=== PATIENT | female | born 1975 | race Caucasian/White ===

== ENCOUNTER 2016-10-20 11:29 | Emergency (ER) | payer BC ==
[2016-10-20] MEDS ORDERED: AMPICILLIN/SULBACTAM 3 GM in NS 100 ML IV ONE (13:19)
--- NOTE | 2016-10-20 13:23 | EDPHY ---
H & P Stated Complaint: left ear pain 6 x days Source: Patient Exam Limitations: No limitations - Personal History LMP (Females 10-55): Irregular Current Tetanus Diphtheria and Acellular Pertussis (TDAP): Yes Tetanus Vaccine Date: <10yrs - Medical/Surgical History Hx Asthma: Yes Hx Chronic Respiratory Disease: No Hx Diabetes: Yes Hx Cardiac Disease: No Hx Renal Disease: No Hx Cirrhosis: No Hx Alcoholism: No Hx HIV/AIDS: No Hx Splenectomy or Spleen Trauma: No Other PMH: DM, hypothyroid, depression. carpel tunnel - Social History Smoking Status: Never smoked Time Seen by Provider: 10/20/16 11:40 HPI/ROS: CHIEF COMPLAINT: left facial swelling, left ear pain HISTORY OF PRESENT ILLNESS: 41-year-old female presents to the emergency department complaining of worsening left-sided facial swelling and left ear pain. Patient reports this started 6 days ago, 4 days ago she was seen at [facility] and started on doxycycline for a left ear infection, she was already taking Keflex for a mastitis. She finished her Keflex yesterday , she reports her mastitis has resolved, she continues with left ear pain and reports left-sided facial swelling is increasing. She denies fevers or chills, no difficulty swallowing, no sore throat. Patient reports 2 weeks ago she started with a cold that has mostly resolved. She denies chest pain, shortness of breath, nausea, vomiting or diarrhea. REVIEW OF SYSTEMS: A comprehensive 10 point review of systems is otherwise negative aside from elements mentioned in the history of present illness. (Wen Badillo) - Physical Exam Exam: Physical Exam Gen: Alert and Oriented, NAD HEENT: PERRL, moist mucous membranes, left external ear canal with swelling and erythema, left TM with moderate erythema, no rupture, left sided facial swelling to parotid gland with tenderness to palpation NECK: no meningismus CV: regular rate and regular rhythm PULM: CTAB, no wheezes ABDOMEN: Obese, soft, non tender to palpation, BS present BACK: No CVA tenderness NEURO: Neurologically grossly intact EXTREMITIES: normal appearing SKIN: no rash or break in skin on exposed skin PSYCH: answers questions appropriately. (Wen Badillo) Constitutional: Initial Vital Signs Temperature (C) 37.3 C 10/20/16 11:30 Heart Rate 85 10/20/16 11:30 Respiratory Rate 18 01/01/17 11:30 Blood Pressure 152/72 H 10/20/16 11:30 O2 Sat (%) 94 10/20/16 11:30 O2 Delivery Mode Room Air Allergies/Adverse Reactions: adhesive Allergy (Verified 10/25/15 06:14) Sulfa (Sulfonamide Antibiotics) Allergy (Verified 10/25/15 06:14) Hives Home Medications: Medication Instructions Recorded Ibuprofen [Motrin (*)] 600 mg PO Q6 PRN #0 tab 10/30/15 Albuterol [Proventil] 2 inh IH DAILY PRN 11/04/15 Calcium [HI-MACARENA] 1,000 mg PO DAILY 11/04/15 Insulin Pump Syringe, 3 ml 1 ml SQ AD 11/04/15 Levothyroxine [Synthroid 137 mcg 137 mcg PO DAILY 11/04/15 (*)] Vit/Iron Fumarate/FA 1 tab PO DAILY 11/04/15 [ Tablet] Albuterol [Ventolin Hfa Inhaler] 2 puffs IH DAILY PRN #0 mdi 11/05/15 Amox Tr/K Clav (Augmentin) 500 mg PO Q8 #21 tab 11/05/15 [Augmentin 500/125 MG TAB (*)] FLUoxetine [Prozac 10 MG (*)] 30 mg PO DAILY #0 cap 11/05/15 Insulin Pump Syringe, 3 ml 0 ml SQ AD 11/05/15 Cephalexin [Keflex] 500 mg PO QID #28 cap 06/14/16 Amoxicillin/Clavulanate Pot 875 mg PO BID #20 tab 10/20/16 [Augmentin 875Mg] Hydrocodone/APAP 5/325 [[place] 1 tab PO Q4H PRN #7 tab 10/20/16 5/325] Medical Decision Making - Diagnostics Imaging: CT maxillofacial with IV contrast- Impression: 1. There is inflammatory thickening of the inner cordero of the left external auditory canal. 2. Left-sided cervical lymphadenopathy deep to the sternocleidomastoid, near the left parotid gland and in the left jugulodigastric space. One of the lymph nodes in the posterior margin of the left parotid gland just dorsal to the retromandibular vein is partially necrotic. Results were discussed with Shaq Badillo, Nurse Practitioner. A test result has been communicated to a licensed care provider and documented in [employer], 2:28:04 PM, 10/20/2016, [employer] Message ID [id number]. Dictated By: Maykel Alberto MD (Wen Badillo) ED Course/Re-evaluation: Patient is a type 1 diabetic, IV is established, i-STAT obtained, urine obtained, patient will have a CT face with IV contrast. Creatinine is 0.6, blood sugar is 163. 1 L normal saline has been ordered. test negative. 3 g of Unasyn ordered IV. CT face shows 1. There is inflammatory thickening of the inner cordero of the left external auditory canal. 2. Left-sided cervical lymphadenopathy deep to the sternocleidomastoid, near the left parotid gland and in the left jugulodigastric space. One of the lymph nodes in the posterior margin of the left parotid gland just dorsal to the retromandibular vein is partially necrotic. Patient was sent home with a prescription for Augmentin, she has no systemic symptoms, she is afebrile. She agrees to follow up with ENT in the next 3-5 days. She is given return precautions for fevers, worsening swelling, other questions or concerns. I have recommended warm compresses. She has been instructed to stop taking her doxycycline and start the Augmentin. (Wen Badillo) Differential Diagnosis: Diagnosis considered but not limited to left parotiditis, Dave's angina, abscess, lymphadenitis, otitis media (Wen Badillo) Other Provider: The patient was evaluated and managed by the Physician Gourmet Coffee Attendant/ Nurse Practitioner. I discussed the patient's presentation and course with the midlevel provider with them and agree with the evaluation. My co-signature indicates that I have reviewed this chart and I agree with the findings and plan of care as documented. I am the secondary supervising physician. (Tahmina Nunez) - Data Points Laboratory Results: 10/20/16 13:11 POC Hgb 16.0 H gm/dL (12.3-15.9) POC Hct 47 % (35.5-47.5) POC Sodium 143 mEq/L (134-144) POC Potassium 4.5 mEq/L (3.3-5.0) POC Chloride 104 mEq/L (96-108) POC BUN 11 mg/dL (7-23) POC Creatinine 0.6 mg/dL (0.6-1.2) POC Glucose 163 H mg/dL (70-100) Medications Given: Discontinued Medications Acetaminophen/Hydrocodone Bitart ([place] 5/325) 1 tab PO EDNOW ONE Stop: 10/20/16 13:41 Last Admin: 10/20/16 13:57 Dose: 1 tab Ampicillin Sodium/Sulbactam (Sodium 3 gm/ Sodium Chloride) 100 mls @ 200 mls/ hr IV EDNOW ONE PRN Reason: Protocol Stop: 10/20/16 13:48 Last Admin: 10/20/16 14:12 Dose: 100 mls Sodium Chloride (Ns) 1,000 mls @ 0 mls/hr IV ONCE ONE PRN Reason: Wide Open Stop: 10/20/16 13:27 Last Admin: 10/20/16 13:37 Dose: 1,000 mls Point of Care Test Results: 10/20/16 13:11 POC Sodium 143 POC Potassium 4.5 POC Chloride 104 POC BUN 11 POC Creatinine 0.6 POC Glucose 163 H Departure - Departure Disposition: Home, Routine, Self-Care Clinical Impression: Left otitis media, Cervical lymphadenitis Condition: Good Instructions: Otitis Media (ED), Adenitis (ED) Additional Instructions: Stop taking her doxycycline, start taking Augmentin as prescribed twice daily for 10 days. Call the ENT listed to schedule an appointment to be seen this week for re-evaluation. Warm compresses to the left side of her face, return to the emergency department for worsening swelling, fevers, other questions or concerns. Take 600 mg of ibuprofen every 8 hours with for 3-5 days for pain and swelling, take [place] for severe pain. Referrals: Darryn Montilla MD [Medical Doctor] - As per Instructions (ENT gas station supervisor ) Prescriptions: Amoxicillin/Clavulanate Pot [Augmentin 875Mg] 875 mg PO BID #20 tab Hydrocodone/APAP 5/325 [[place] 5/325] 1 tab PO Q4H PRN #7 tab PRN Reason: Pain, Moderate
[2016-10-20] MEDS ORDERED: NS 1,000 ML IV ONE (13:26)
[2016-10-20] MEDS ORDERED: IOPAMIDOL (ISOVUE-300) 100 ML BTL IV ONE (13:38)
[2016-10-20 13:40] VITALS: RESP 16
[2016-10-20] MEDS ORDERED: HYDROCODONE/APAP 5/325 TAB PO ONE (13:40)
--- NOTE | 2016-10-20 14:38 | CT ---
Contrast-Enhanced CT Scan of the Face Clinical History: 41-year-old female complaining of left-sided ear and facial pain and swelling. The patient was recently treated with Keflex for a left mastitis, although developed a left ear infection and added Doxycycline, although has had progression in her left ear swelling. Technique: The patient received 90 mL of IV Isovue-300 without complication, and a multidetector hel ical CT scan was obtained from the frontal lobes caudally to the level of the hyoid cartilage, with i mages reformatted at 1.50 mm increments, and reviewed in soft tissue and bone windows. Parasagittal a nd paracoronal reconstructed images were reviewed on the workstation. The DFOV is 20.6 cm. A dose red uction protocol was used. Comparison Study: None. Findings: The mastoid air cells and the paranasal sinuses are aerated. There is no osseous erosion o r air-fluid level. There is some mildly asymmetric inflammatory thickening along the inner cordero of t he left external auditory canal when compared with the contralateral side (please reference series 3, images 53-59, for example). There is a normal appearance to the middle and inner ear, and there is a normal symmetrical appearance to the internal auditory canals. There is a 0.9 x 0.8 cm enhancing lym ph node along the upper anterior margin of the left parotid gland. There is a partially necrotic 1.0 x 1.0 cm lymph node along the posterior central aspect of the left parotid gland, just dorsal to the retromandibular vein. There is also some lymphadenopathy deep to the left sternocleidomastoid muscle on series 3, image 12, measuring 0.9 x 1.6 cm. There is a 0.9 x 1.1 cm lymph node just posterior to t his, and there is also a 1.4 x 1.5 cm left jugulodigastric lymph node. The submandibular glands and t he base of the tongue are normal. The temporomandibular joints are anatomically aligned. The zygomati c arches are intact. The visualized supra- and infratentorial structures are unremarkable. The orbits appear normal. Impression: 1. There is inflammatory thickening of the inner cordero of the left external auditory canal. 2. Left-sided cervical lymphadenopathy deep to the sternocleidomastoid, near the left parotid gland a nd in the left jugulodigastric space. One of the lymph nodes in the posterior margin of the left paro tid gland just dorsal to the retromandibular vein is partially necrotic. Results were discussed with Shaq Badillo, Nurse Practitioner. A test result has been communicated to a licensed care provider and documented in [employer], 2:28:04 PM , 10/20/2016, [employer] [facility] Message ID [id number].
[2016-10-20 15:20] VITALS: BP 133/77; PULSE 75; TEMP 97.5; O2SAT 95
== END 2016-10-20 15:43 | disposition home or self-care (01) ==
DX: H66.92 Otitis media, unspecified, left ear (principal); L04.0 Acute lymphadenitis of face, head and neck; J45.909 Unspecified asthma, uncomplicated; E11.9 Type 2 diabetes mellitus without complications; Z79.4 Long term (current) use of insulin
CPT/HCPCS: 82947-QW; 96365; J0295; Q9967

== ENCOUNTER → 2017-09-04 | Outpatient (CLI) | payer BC | LOC: FIMAGING 15:27 | PROVIDERS: ATTEND Obstetrics & Gynecology | DX: Z12.31 Encounter for screening mammogram for malignant neoplasm of breast (principal); R92.8 Other abnormal and inconclusive findings on diagnostic imaging of breast | CPT/HCPCS: G0202 ==

== ENCOUNTER → 2017-09-09 | Outpatient (CLI) | payer BC | LOC: FIMAGING 14:50 | PROVIDERS: ATTEND Obstetrics & Gynecology | DX: Z13.29 Encounter for screening for other suspected endocrine disorder (principal); R92.8 Other abnormal and inconclusive findings on diagnostic imaging of breast | CPT/HCPCS: G0206 ==

== ENCOUNTER → 2018-09-04 | Outpatient (CLI) | payer BC | LOC: FIMAGING 11:28 | PROVIDERS: ATTEND Obstetrics & Gynecology | DX: Z12.31 Encounter for screening mammogram for malignant neoplasm of breast (principal) ==

== ENCOUNTER 2019-02-24 07:02 | Day surgery (SDC) | payer BC ==
--- NOTE | 2019-02-23 16:28 | GHP ---
[f rep st] PREOP HISTORY AND PHYSICAL DATE OF ADMISSION: 02/24/2019 PLANNED PROCEDURE: Suction, dilation and curettage for missed . INDICATIONS: The patient is a 43-year-old, 2, para 0-1-0-1, who is approximately 10 weeks ge station. The patient had presented for a confirmation of on 02/08/2019, which showed a via ble intrauterine . She was scheduled for her new OB visit on 02/16/2019, which showed a siz e less than dates by 13 days with a slow cardiac activity with a known menses and conception. She don d a repeat ultrasound on 02/22, which showed no further growth and no cardiac activity. A diagnosis of missed was made. Management options were reviewed with the patient. The patient is elec ting to proceed with a suction, dilation and curettage. Risks and benefits have been reviewed. The patient signed consent on her day of surgery. PAST MEDICAL HISTORY: The patient's medical history is significant for type 1 diabetes diagnosed at age 10. 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 She has a history of VIN1 as well. MEDICATIONS: Humalog 100 units/mL up to 120 units daily via insulin pump, 500 of Lantus, Levothyroxi ne 125 mcg a day, metformin 500 mg 2 p.o. b.i.d., Zofran, Soolantra cream, fluoxetine 40 mg a day and calcium. SURGICAL HISTORY: D and C for retained products of conception after her 1st delivery in 2015. In , she had 2 vulvar laser surgeries for dysplasia. In 1993, she had a right breast lumpectomy which was benign. In 1999, she had bilateral carpal tunnel hand surgery. She had another hand surgery in 2006 and 2013. FAMILY MEDICAL HISTORY: Noncontributory. ALLERGIES: Sulfa which causes hives and adhesives. SOCIAL HISTORY: The patient is . She denies tobacco, alcohol or drug use. GRAIN ELEVATOR OPERATOR HISTORY: Menarche age 11. Periods every 28 days lasting 5-7 days. She is a 2, para 0-1-0-1. In 10/2015, she had a spontaneous vaginal delivery out of a 32-weeker after PROM at 32 weeks. The period was complicated by retained products of conception, which was res olved with suction, dilation and curettage. Current is a diagnosis of missed . Nura pruett does have a history of abnormal Pap smears. She has just had colposcopies. She does have a hi story of oral HSV. PHYSICAL EXAMINATION: VITAL SIGNS: Stable. Her weight is 212. Her blood pressure is 134/68. GENE RAL APPEARANCE: Alert and oriented x3. MUSCULOSKELETAL: Grossly intact. PSYCH: Appropriate affec t. NEURO: Grossly intact. HEART: Regular. LUNGS: Clear to auscultation bilaterally. ABDOMEN: Obese, nondistended, nontender. EXTREMITIES: Reveal no calf tenderness or edema. PELVIC: Reveals a mobile midposition uterus with no adnexal masses. Pelvic ultrasound was described above. The patient's labs, she is blood type A positive. REVIEW OF SYSTEMS: 10-point review of systems is negative. ASSESSMENT/PLAN: A 43-year-old 2, para 0-1-0-1, who has a diagnosis of missed . She has been counseled on management options and elected to proceed with a suction, dilation and curetta ge. Risks and benefits have been reviewed with the patient, and the patient will sign consent day of surgery. /[id number]/MODL
[2019-02-24] MEDS ORDERED: LR 1,000 ML IV ONE (07:49)
[2019-02-24] MEDS ORDERED: DOXYCYCLINE HYCLATE 100 MG CAP/TAB PO ONE (07:49)
[2019-02-24] MEDS ORDERED: MIDAZOLAM 2 MG/2 ML VIAL IVP ONE (08:18)
[2019-02-24] MEDS ORDERED: PROMETHAZINE HCL 25 MG/ML INJ IVP PRN (08:19)
[2019-02-24] MEDS ORDERED: ALBUTEROL 3 ML DEYVIAL IH PRN (08:19)
[2019-02-24] MEDS ORDERED: oxyCODONE IR 5 MG TAB PO PRN (08:19)
[2019-02-24] MEDS ORDERED: fentaNYL 100 MCG/2 ML INJ IVP PRN (08:19)
[2019-02-24] MEDS ORDERED: LR 500 ML IV PRN (08:19)
[2019-02-24] MEDS ORDERED: HYDROmorphONE/DILAUDID 1 MG/ML INJ IVP PRN (08:19)
[2019-02-24] MEDS ORDERED: NALOXONE HCL 0.4 MG/ML INJ IVP PRN (08:19)
[2019-02-24] MEDS ORDERED: ACETAMINOPHEN 500 MG TAB PO ONE (08:19)
[2019-02-24] MEDS ORDERED: ONDANSETRON 4 MG/2 ML VIAL IVP PRN (08:19)
--- NOTE | 2019-02-24 08:20 | PDANEPAE ---
ANE History of Present Illness D&C ANE Past Medical History - Pulmonary History Hx Oxygen in Use at Home: No Hx Sleep Apnea: Yes - Endocrine History Hx Diabetes: Yes - Chronic Pain History Chronic Pain: Yes (backpain) ANE Review of Systems Review of Systems: ANE Patient History - Allergies Allergies/Adverse Reactions: adhesive Allergy (Verified 10/25/15 06:14) Sulfa (Sulfonamide Antibiotics) Allergy (Verified 10/25/15 06:14) Hives - Home Medications Home Medications: Albuterol [Proventil] 2 inh IH DAILY PRN 11/04/15 [Last Taken Unknown] Calcium [HI-MACARENA] 1,000 mg PO DAILY 11/04/15 [Last Taken 11/04/15] Insulin Pump Syringe, 3 ml 1 ml SQ AD 11/04/15 [Last Taken 11/04/15] Levothyroxine [Synthroid 137 mcg (*)] 137 mcg PO DAILY 11/04/15 [Last Taken ] Vit/Iron Fum/Folic AC [ Tablet] 1 tab PO DAILY 11/04/15 [Last Taken 11/04/15] - NPO status NPO Since - Liquids (Date): 02/24/19 NPO Since - Liquids (Time): 05:00 NPO Since - Solids (Date): 02/23/19 NPO Since - Solids (Time): 11:00 - Smoking Hx Smoking Status: Never smoked ANE Labs/Vital Signs - Vital Signs Blood Pressure: 123/64 Heart Rate: 96 Respiratory Rate: 14 O2 Sat (%): 36 Height: 165.1 cm Weight: 95.254 kg ANE Physical Exam - Airway Neck exam: FROM Mallampati Score: Class 2 Mouth exam: normal dental/mouth exam - Pulmonary Pulmonary: clear to auscultation - Cardiovascular Cardiovascular: regular rate and rhythym - ASA Status ASA Status: II ANE Anesthesia Plan Anesthesia Plan: general endotracheal anesthesia
[2019-02-24] MEDS ORDERED: PROPOFOL 200 MG/20 ML VIAL ONE (08:23)
[2019-02-24] MEDS ORDERED: ONDANSETRON 4 MG/2 ML VIAL ONE (08:24)
[2019-02-24] MEDS ORDERED: RANITIDINE 50 MG/2 ML VIAL ONE (08:24)
[2019-02-24] MEDS ORDERED: fentaNYL 100 MCG/2 ML INJ ONE (08:25)
[2019-02-24] MEDS ORDERED: MISOPROSTOL 200 MCG TAB ONE (08:57)
--- NOTE | 2019-02-24 09:54 | POSTANESTH ---
Post Anesthetic Evaluation Cardiovascular Status: Normal, Stable Respiratory Status: Normal, Stable Level of Consciousness/Mental Status: Can Participate in Eval, Mildly Sleepy, Arousable Pain Control: Adequate, Prn Tx Ordered Nausea/Vomiting Control: Adequate, Prn Tx Ordered Complications Possibly Related to Anesthesia: None Noted
[2019-02-24 10:22] VITALS: BP 117/63
[2019-02-24] MEDS ORDERED: KETOROLAC 30 MG/1 ML SDV IVP ONE (10:42)
--- NOTE | 2019-02-24 15:01 | GOP ---
[f rep st] OPERATIVE REPORT DATE OF OPERATION: 02/24/2019 SURGEON: Mavis Cline DO ANESTHESIA: General with LMA. ANESTHESIOLOGIST: Matthew Lorenzo DO PREOPERATIVE DIAGNOSIS: Missed . POSTOPERATIVE DIAGNOSIS: Missed . PROCEDURE PERFORMED: Suction dilation and curettage. FINDINGS: Mobile midposition uterus with no adnexal masses. SPECIMENS: Products of conception. ESTIMATED BLOOD LOSS: 150 cc. INDICATIONS: The patient is a 43-year-old, 2, para 0-1-0-1, who was diagnosed with a missed and a 10-week gestation. Management options were reviewed with the patient. The patient el ected to proceed with a suction dilation and curettage. Risks and benefits have been reviewed with t he patient. Patient has been properly consented. DESCRIPTION OF PROCEDURE: Patient was taken to the operating room with intravenous fluids in place. She was given p.o. doxycycline prior to the procedure. She was then placed on the operating room ta ble in a dorsal supine position where general anesthesia was obtained. She was then repositioned int o the dorsal lithotomy position [facility] and prepped and draped in a normal steril e fashion. Exam under anesthesia revealed a mobile, midposition uterus with no adnexal masses. A sp eculum was then placed in the patient's vagina. An Allis clamp was used to grasp the anterior lip of the cervix. Cervix was then carefully dilated to allow for the introduction of a 10 curved suction curette. A circumferential curettage was performed. A sharp metal curette was then introduced and a gentle curettage was performed. The suction curette was then introduced 1 additional time. No julio tional products of conception were noted. Instruments were then removed from the patient's vagina. A transvaginal ultrasound was performed whi ch showed a thin endometrial stripe. The bleeding was noted to be minimal. She was given 800 mcg of Cytotec per rectum. Sponge, lap, and needle count were correct x2. Patient was easily awoken from anesthesia and was then transferred to recovery room. /[id number]/MODL
== END 2019-02-24 11:20 | disposition home or self-care (01) ==
LOC: FOBOP 07:02
PROVIDERS: ATTEND Obstetrics & Gynecology
PROC: 10D17ZZ Extraction of Products of Conception, Retained, Via Natural or Artificial Opening (ICD-10-PCS; principal; 2019-02-24)
DX: O02.1 Missed abortion (principal); Z3A.10 10 weeks gestation of pregnancy; O24.011 Pre-existing type 1 diabetes mellitus, in pregnancy, first trimester; E10.3599 Type 1 diabetes mellitus with proliferative diabetic retinopathy without macular edema, unspecified eye; Z96.41 Presence of insulin pump (external) (internal); O99.89 Other specified diseases and conditions complicating pregnancy, childbirth and the puerperium; G47.33 Obstructive sleep apnea (adult) (pediatric); J45.909 Unspecified asthma, uncomplicated; G43.909 Migraine, unspecified, not intractable, without status migrainosus; E03.9 Hypothyroidism, unspecified; O99.341 Other mental disorders complicating pregnancy, first trimester; F32.9 Major depressive disorder, single episode, unspecified; O09.521 Supervision of elderly multigravida, first trimester
CPT/HCPCS: J1885; J2250; J2405; J2704; J2780; J3010; J7613

== ENCOUNTER → 2019-03-04 | Outpatient (CLI) | payer BC | LOC: FIMAGING 13:58 | PROVIDERS: ATTEND Physician Assistant Medical | DX: M25.552 Pain in left hip (principal); M54.5 Low back pain ==

== ENCOUNTER → 2019-03-16 | Outpatient (CLI) | payer BC | LOC: FIMAGING 14:29 ==